=== PATIENT | male | born 1960 | race Caucasian/White ===

== ENCOUNTER 2024-11-09 20:52 | Outpatient (CLI) | payer BC, SELFPAY | END 2024-11-09 20:53 | disposition home or self-care (01) | LOC: SLEEP 20:54 | PROVIDERS: Visit Provider Internal Medicine | DX: G47.33 Obstructive sleep apnea (adult) (pediatric) (principal); G47.31 Primary central sleep apnea | CPT/HCPCS: 95811 ==